=== PATIENT | female | born 1970 | race Caucasian/White ===

== ENCOUNTER 2024-12-05 16:35 | Emergency (ER) | payer OTHER, SELFPAY ==
--- OUTSIDE RECORDS SUMMARY | 2024-12-05 16:37 | XMS_ITS | Clinical Summary ---
Author Organization [facility] [place] [address] [facility] Address [address] [place] [address] Care Team Providers Care Work Checker Name Role Phone Erik Carr MD Primary Care Provider [phone] Allergies No known active allergies Medications finasteride (PROSCAR) 5 mg tablet Take 1 tablet (5 mg total) by mouth daily 5 Active OneTouch Delica Plus Lancet 33 gauge misc USE ONE LANCET ONCE A DAY FOR 100 DAYS 5 Active lisdexamfetamin e (VYVANSE) 40 mg capsule Take 1 capsule (40 mg total) by mouth every morning 5 Active metFORMIN (GLUCOPHAGE) 1,000 mg tablet Take 1 tablet (1,000 mg total) by mouth daily with breakfast 2 Active minoxidiL (LONITEN) 2.5 mg tablet Take 1 tablet (2.5 mg total) by mouth daily 5 Active naproxen (NAPROSYN) 250 mg tablet 5 Active ondansetron (ZOFRAN) 4 mg tablet Take 1 tablet (4 mg total) by mouth every 8 (eight) hours as needed 5 Active progesterone (PROMETRIUM) 200 mg capsule Take 1 capsule (200 mg total) by mouth nightly 5 Active Skyrizi 150 mg/mL pen injector Once every three months 5 Active Rybelsus 7 mg tablet Take 1 tablet (7 mg total) by mouth director experimental medicine before breakfast 3 Active tamsulosin (FLOMAX) 0.4 mg extended release capsule Take 1 capsule (0.4 mg total) by mouth daily 5 Active HYDROcodone-aj taminophen (NORCO) 5-325 mg per tabletIndicatio ns:Pain Take 1 tablet by mouth every 6 (six) hours as needed (pain) No more than 8 tablets per day 8 tablet 5 Active Active Problems Problem Noted Date Diagnosed Date Kidney stone 05/31/2024 Encounters Date Type Department Care Team Description 09/11/2024 7:20 AM CDT - 09/11/2024 11:59 PM CDT Hospital Encounter [address] [address] Kidney stone Discharge Disposition: Discharge to home or self care from Last 3 Months Surgical History Surgery Date Site/Laterality Comments TONSILLECTOMY 2 yrs old TUBAL LIGATION 04/17/1999 - 04/16/2000 Medical History Medical History Date Comments Nephrolithiasis Type 2 diabetes mellitus ADHD (attention deficit hyperactivity disorder) Social History Tobacco Use Types Packs/Day Years Used Date Smoking Tobacco: Former Cigarettes Smokeless Tobacco: Never Tobacco Cessation:Counseling Given: Not Answered AUDIT-C Answer Date Recorded Q1: How often do you have a drink containing alcohol? Never 06/07/2024 Q2: How many drinks containi ng alcohol do you have on a typical day when you are drinking? Patient does not drink Q3: How often do you have si x or more drinks on one occasion? Never 06/07/2024 Personal Safety Answer Date Recorded Have you ever been in or are you currently in a harmful physical or emotional relationship or is someone making you feel afraid or unsafe? 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 Gender Identity Not on file Sexual Orientation Not on file Obstetrics History Last Filed Vital Signs Vital Sign Reading Time Taken Comments Blood Pressure 130/87 06/07/2024 3:50 PM [employer] LO[employer] Pulse 84 06/07/2024 3:50 PM [employer] LO[employer] Temperature 36.4 C (97.5 F) 06/07/2024 3:20 PM [employer] LO[employer]ER Respiratory Rate 18 06/07/2024 3:50 PM CAUSTICS LOADER Oxygen Saturation 99% 06/07/2024 3:50 PM CAUSTICS LOADER Inhaled Oxygen Concentration - - Weight 74 kg (163 lb 1.6 oz) 06/07/2024 12:24 PM [employer]USTICS LOADER Height 170.2 cm (5' 7) 06/07/2024 12:24 PM CAUSTICS LOADER Body Mass Index 25.55 06/07/2024 12:24 PM CAUSTICS LOADER Plan of Treatment Health Maintenance Due Date Last Done Comments Breast Cancer Screening-Mammogram 1968 Cervical Cancer Screening 1968 Colon Cancer Screening-Colonoscopy 1968 Depression Screening 1968 Hepatitis C Screening 1968 Hepatitis B Screening 1986 Regular Well Visit/Exam 18-64 1986 Influenza Vaccine (#1) 2024 4, 01/17/2022, 02/19/2021, Additional history exists DTaP/Tdap/Td Vaccine (2 - Td or Tdap) 10/24/2029 10/25/2019 Zoster Vaccine Completed 07/09/2022, 01/17/2022 Covid-19 Vaccine Completed 02/10/2024, 08/2020, 06/22/2020 Pneumococcal vaccine <65 Aged Out No longer eligible based on patient's age to complete this topic Medical Devices Explanted Type Area Auto Design Detailer Device Identifier Shelf Expiration Date Model / Serial / Lot [employer] [id number] 6fr 26cm 145cm Radiopaque Positioner Filiform Flexible Tip - [id number] Implanted:Qty: 1 on 06/07/2024 by Aly Holt MD at [facility] Explanted:Qty: 1 on 06/12/2024 Stent Left: [employer] [id number] 03/04/2027 [id number] / / [id number] Procedures Procedure Name Priority Date/Time Associated Diagnosis Comments US KIDNEY COMPLETE Schedule Routine, Read Routine (OP Routine) 09/11/2024 7:56 AM CDT Kidney stone from Last 3 Months Results * US Kidney Complete (09/11/2024 7:56 AM CDT) Anatomical Region Laterality Modality Kidney N/A Ultrasound 09/21/2024 8:45 AM CDT Narrative 09/21/2024 8:47 AM CDT EXAM DESCRIPTION: US KIDNEY COMPLETE REASON FOR STUDY: History of left renal stone for follow-up, lithotripsy 2 months ago. TECHNIQUE: Ultrasound of the kidneys and urinary bladder was performed with grayscale imaging. COMPARISON: Correlation is made with the CT abdomen and pelvis 05/29/2024. FINDINGS: RIGHT KIDNEY: The right kidney measures 11.8 cm in length. There is no hydronephrosis. Mild cortical thinning upper pole right kidney. There is top normal echogenicity. LEFT KIDNEY: The left kidney measures 12.6 cm in length. There is no hydronephrosis. There is normal cortical thickness and top normal echogenicity. URINARY BLADDER: The urinary bladder, as visualized, appears unremarkable. The bilateral ureteral jets are visualized. OTHER: Incidental note is made of fluid along the endometrial canal. The liver is echogenic suggesting steatosis. IMPRESSION: No evidence of urolithiasis or obstructive uropathy. Top normal renal echogenicity could be seen with mild medical renal disease. Mild right upper pole cortical renal thinning. Hepatic steatosis. Fluid along the endometrial canal. Could consider dedicated follow-up pelvic ultrasound if clinically indicated. THIS IS AN ELECTRONICALLY VERIFIED FINAL REPORT 09/21/2024 8:47 AM - Electronically signed by Ash Mccabe M.D. T: Report ID: [id number] Reading Location: [id number] Procedure Note Ash Mccabe Jr., MD - 09/21/2024 EXAM DESCRIPTION: US KIDNEY COMPLETE REASON FOR STUDY: History of left renal stone for follow-up, lithotripsy 2 months ago. TECHNIQUE: Ultrasound of the kidneys and urinary bladder was performedwith grayscale imaging. COMPARISON: Correlation is made with the CT abdomen and pelvis 05/29/2024. FINDINGS: RIGHT KIDNEY: The right kidney measures 11.8 cm in length.There is no hydronephrosis. Mild cortical thinning upper pole right kidney.There is top normal echogenicity. LEFT KIDNEY: The left kidney measures 12.6 cm in length. There is no hydronephrosis. There is normal cortical thickness and top normal echogenicity. URINARY BLADDER: The urinary bladder, as visualized, appearsunremarkable. The bilateral ureteral jets are visualized. OTHER: Incidental note is made of fluid along the endometrial canal.The liver is echogenic suggesting steatosis. IMPRESSION: No evidence of urolithiasis or obstructive uropathy. Top normal renal echogenicity could be seen with mild medical renaldisease. Mild right upper pole cortical renal thinning. Hepatic steatosis. Fluid along the endometrial canal. Could consider dedicated follow-uppelvic ultrasound if clinically indicated. THIS IS AN ELECTRONICALLY VERIFIED FINAL REPORT 09/21/2024 8:47 AM - Electronically signed by Ash Mccabe M.D. T: Report ID: [id number] Reading Location: [place] [address] us Samuel Aiken ITEM PROCESSING CLERK IMG US PROCEDURES Final Resul t from Last [address] [place] [address] [facility] PPO [employer] [facility] [employer] [place] [address] Care Teams Work Checker Relationship Specialty Start Date End Date Erik Carr MD [facility] [place] [address] PCP - General Family Medicine 05/30/24
--- NOTE | 2024-12-05 16:38 | ED_ITS ---
HPI - Female Genitourinary General Chief complaint: Urogenital-Female Stated complaint: uti Time Seen by Provider: 12/05/24 16:52 Source: patient and RN notes reviewed Mode of arrival: ambulatory Limitations: no limitations History of Present Illness HPI Narrative: 54-year-old female presents to the [facility] with concerns for UTI. Patient reports that she was diagnosed with a UTI 2-3 weeks ago took an antibiotic and was taking Cystex. Patient reports she is not sure if it cleared up or if it returned. For the last 3-4 days she has had some frequency, discomfort with urination. States that she tried calling her urologist but cannot get in for 3 months. Urologist is at [facility] in [place] Patient denies any nausea or vomiting. CVA tenderness. Denies pain. Onset (ago): day(s) (3-4) Related Data Home Medications ?Medication ?Instructions ?Recorded ?Confirmed ?Last Taken ?Type finasteride 5 mg tablet mg 12/05/24 Unknown History lisdexamfetamine 40 mg capsule mg 12/05/24 Unknown Hi story lisinopril 2.5 mg tablet 2.5 mg PO DAILY 12/05/24 Unknown History metformin 1,000 mg tablet mg 12/05/24 Unknown History risankizumab-rzaa 150 mg/mL mg subcut 12/05/24 Unknow n History subcutaneous pen injector (Skyrizi) semaglutide 7 mg tablet (Rybelsus) mg PO 12/05/24 Unk nown History Allergies Allergy/AdvReac Type Severity Reaction Status Date / Time No Known Allergies Allergy Verified 12/05/24 16:51 Review of Systems Review of Systems: All systems reviewed & are unremarkable except as noted in HPI and below Constitutional: Constitutional: Reports no additional constitutional complaints Respiratory: Respiratory: Reports no additional respiratory complaints, Denies chest congestion, Denies cough and Denies dyspnea Gastrointestinal: Gastrointestinal: Reports no additional gastrointestinal complaints Genitourinary: Genitourinary: Reports as per HPI Musculoskeletal: Musculoskeletal: Reports no additional musculoskeletal complaints Integumentary/Breasts: Skin/Breast: Reports system reviewed and no additional complaints, except as docu PMF Comments At the time of my signature, I reviewed and agree with the nursing past medical, surgical, social, and family history. There is no relevant family history pertinent to the patient complaint. Exam Const: General: cooperative, healthy appearing, comfortable, no acute distress, well developed, alert and well nourished Nutritional Appearance: well nourished Orientation/consciousness: patient oriented x3 Limitations: no limitations HENMT: Head: normal to inspection Eyes: General: appearance normal, both eyes and all related structures Alignment and Position: alignment normal Neck: Neck: normal visual inspection, full ROM, no lymphadenopathy and no meningeal signs Chest: Chest palpation & inspection: normal inspection of the chest Resp: Effort & Inspection: normal respiratory effort and able to speak in complete sentences Auscultation: clear to auscultation bilaterally, no crackles, no rales, no rhonchi and no wheezes Cardio: Rate: regular rate GI: GI Palp: No abdominal tenderness : General: Yes no CVA tenderness Skin: General skin exam: normal color and no rashes or lesions noted Neuro: General: patient oriented x3, gait normal, moves all extremities and no meningeal signs Cognition (Neuro): normal cognition Speech: normal speech Gait exam (Neuro): Normal gait present Extrem: General: normal to inspection, full ROM, capillary refill normal and normal gait Psych: Appearance: grossly normal and well kempt Mental Status: mental status grossly normal Speech and movement: Normal speech and movement present and Clear speech present Affect: normal affect Attitude: cooperative Course Course Level of Care: Express Care Visit Vital Signs Vital signs: Vital Signs Temperature 97.8 F 12/05/24 16:48 Pulse Rate 80 12/05/24 16:48 Respiratory Rate 18 12/05/24 16:48 Blood Pressure 137/81 12/05/24 16:48 Pulse Oximetry 99 12/05/24 16:48 Oxygen Delivery Room Air 12/05/24 16:48 Temperature 97.8 F 12/05/24 16:48 Pulse Rate 80 12/05/24 16:48 Respiratory Rate 18 12/05/24 16:48 Blood Pressure 137/81 12/05/24 16:48 Pulse Oximetry 99 12/05/24 16:48 Oxygen Delivery Room Air 12/05/24 16:48 Reviewed MDM - Female Genitourinary MDM Narrative Medical decision making narrative: Patient sitting in exam. Patient is nontoxic, vitals stable. Patient with 3 to for day history discomfort, painful urination, frequency. Plus one leukocytes in urine, will culture Due to patient's medical history discussed that some of the medications she is on can cause frequent UTIs and stressed the importance of following up with her urologist Patient is appropriate for outpatient treatment with antibiotics and close follow-up Discharge instructions reviewed with patient, as well as provided in writing per nursing staff. The instructions also include specific and strict return/GO TO THE ER as well as f/u information. All questions have been answered, and the patient deny any further questions with discharge and discharge plan. Some parts of this dictation were generated by voice recognition software and may contain typographical and/or grammatical inaccuracies. Differential Diagnosis Differential diagnosis: Likely urinary tract infection and cystitis Lab Data Labs: Lab Results 12/05/24 Range/Units 16:55 POC Urine Color Yellow POC Urine Clarity Cloudy POC Urine pH 7.0 POC Ur Specif Deweese 1.020 POC Urine Protein Negative (Negative) POC Ur Glucose (UA) Negative (Negative) POC Urine Ketones Negative (Negative) POC Urine Blood Negative (Negative) POC Urine Nitrite Negative (Negative) POC Urine Bilirubin Negative (Negative) POC Urine Urobilinogen 1.0 POC U Leukocyte Esteras 1+ (Negative) Reviewed Critical Care Time Critical Care Time Critical Care Time: No Discharge Plan Discharge Clinical Impression: Dysuria Patient Disposition: Home Condition: Stable Instructions: Antibiotic Form, Dysuria (ED) Additional Instructions: Increased water intake Take Tylenol as needed for pain Take antibiotic as prescribed Today your urine dip showed a probability of a UTI. You have been prescribed an antibiotic. Your urine will be sent to our lab for a culture. If at that time a bacteria grows that is not covered by the antibiotic prescribed you will be notified. Follow-up with primary care Make sure to follow-up with your urologist as soon as possible. For new or worsening symptoms go directly to the emergency room Patient Language: Unknown Prescriptions: New amoxicillin-pot clavulanate 875-125 mg tablet 1 tablet PO Q12H Qty: 10 0RF No Action metformin 1,000 mg tablet lisdexamfetamine 40 mg capsule Rybelsus 7 mg tablet PO lisinopril 2.5 mg tablet 2.5 mg PO DAILY finasteride 5 mg tablet Skyrizi 150 mg/mL pen injector SUBCUT Follow-up/Referrals: UNKNOWN,DOCTOR [Primary Care Provider] Time of Disposition: 16:58
[2024-12-05 16:48] VITALS: BP 137/81; PULSE 80; RESP 18; TEMP 36.6; O2SAT 99
[2024-12-05 16:57] LABS: EDUAAPPEAR Cloudy; EDUABILI Negative (Negative); EDUABLOOD Negative (Negative); EDUACOLOR1 Yellow; EDUAGLUCOSE Negative (Negative); EDUAKETONE Negative (Negative); EDUALEUKO 1+ (Negative); EDUANITRATE Negative (Negative); EDUAPH 7.0; EDUAPROTEIN Negative (Negative); EDUASPGRAVITY 1.020; EDUAUROBILI 1.0
== END 2024-12-05 17:01 | disposition home or self-care (01) ==
PROVIDERS: Emergency Provider Nurse Practitioner
DX: R30.0 Dysuria (principal); I10 Essential (primary) hypertension; E11.9 Type 2 diabetes mellitus without complications; Z79.84 Long term (current) use of oral hypoglycemic drugs
CPT/HCPCS: 81003; 87086; 99203; G0463